=== PATIENT | female | born 1975 | race Caucasian/White ===

== ENCOUNTER → 2017-03-12 | Outpatient (REF) | payer BC | LOC: M LAB REF 09:50 | DX: J02.9 Acute pharyngitis, unspecified (principal) | CPT/HCPCS: 87077 ==

== ENCOUNTER 2017-03-31 05:42 | Day surgery (SDC) | payer BC ==
[2017-03-31] MEDS: ACETAMINOPHEN 650 MG SUPP PR (06:00)
[2017-03-31 06:34] LABS: HEMOGLOBIN 14.2 g/dl (12.0-16.0); MEAN CORPUSCULAR HEMOGLOBIN 29.6 pg (27.0-33.0); MEAN CORPUSCULAR HGB CONC 32.3 g/dl (32.0-36.5); MEAN CORPUSCULAR VOLUME 91.9 fl (80.0-96.0); PLATELET COUNT, AUTOMATED 383 10^3/uL (150-450); RED BLOOD COUNT 4.79 10^6/uL (4.00-5.40); RED CELL DISTRIBUTION WIDTH 13.2 % (11.5-14.5); WHITE BLOOD COUNT 6.8 10^3/uL (4.0-10.0)
[2017-03-31] MEDS: LR 1,000 ML IV ×5 (06:39→19:30)
[2017-03-31 06:47] LABS: CONTROL LINE HCG INT CTR LINE PRESENT; HCG, SERUM QUALITATIVE NEGATIVE (NEGATIVE)
[2017-03-31 06:53] LABS: ANION GAP 8 MEQ/L (8-16); BLOOD UREA NITROGEN 7 MG/DL (7-18); CALCIUM LEVEL 9.2 MG/DL (8.5-10.1); CARBON DIOXIDE LEVEL 27 MEQ/L (21-32); CHLORIDE LEVEL 106 MEQ/L (98-107); CREATININE FOR GFR 0.81 MG/DL (0.55-1.02); GLOMERULAR FILTRATION RATE > 60.0 (>58); GLUCOSE, FASTING 92 MG/DL (70-100); POTASSIUM SERUM 4.1 MEQ/L (3.5-5.1); SODIUM LEVEL 141 MEQ/L (136-145)
[2017-03-31] MEDS: ACETAMINOPHEN 650 MG SUPP As Ordered (07:55)
[2017-03-31] MEDS ORDERED: MIDAZOLAM INJ 2 MG/2 ML VIAL (J2250) As Ordered (07:58)
[2017-03-31] MEDS ORDERED: fentaNYL 250 MCG/5 ML INJECTION (J3010) As Ordered (07:58)
[2017-03-31] MEDS ORDERED: ROCURONIUM BROMIDE 50 MG/5 ML VIAL As Ordered ×2 (07:59)
[2017-03-31] MEDS ORDERED: LIDOCAINE 2% INJ 100 MG/5 ML SYRINGE As Ordered (08:01)
[2017-03-31] MEDS ORDERED: METOCLOPRAMIDE INJ 10MG/2ML VIAL (J2765) As Ordered (08:02)
[2017-03-31] MEDS ORDERED: KETOROLAC 60 MG/2 ML VIAL (J1885) As Ordered (08:02)
[2017-03-31] MEDS ORDERED: PROPOFOL 200 MG/20 ML VIAL As Ordered (08:02)
[2017-03-31] MEDS ORDERED: ONDANSETRON 4MG/2ML VIAL (J2405) As Ordered (08:02)
[2017-03-31] MEDS ORDERED: dexameTHASONE 4 MG/ML 1ML VIAL (J1100) As Ordered ×2 (08:02)
[2017-03-31] MEDS ORDERED: NEOSTIGMINE 10 MG/10 ML VIAL (J2710) As Ordered (08:03)
[2017-03-31] MEDS ORDERED: GLYCOPYRROLATE INJ 0.2 MG/ML 2 ML VIAL As Ordered ×2 (08:03)
[2017-03-31] MEDS: FLUORESCEIN 10% (100MG/ML) 5 ML VIAL As Ordered (09:07)
[2017-03-31] MEDS: BUPIVACAINE HCL 0.25% 30 ML VIAL As Ordered (09:35)
[2017-03-31] MEDS: LIDOCAINE W/EPINEPHRINE 1% 20ML VIAL As Ordered (09:35)
[2017-03-31] MEDS ORDERED: MEPERIDINE INJ 25 MG/ML VIAL (J2175) As Ordered (09:58)
[2017-03-31] MEDS: MEPERIDINE INJ 25 MG/ML VIAL (J2175) IV ×2 (10:00→10:05)
[2017-03-31] MEDS ORDERED: PERCOCET 5MG/325MG TAB PO (10:15)
[2017-03-31] MEDS ORDERED: ONDANSETRON 4MG/2ML VIAL (J2405) IV (10:15)
[2017-03-31] MEDS ORDERED: HYDROmorphone HCL 1 MG/ML SYRINGE (J1170) IV (10:15)
[2017-03-31] MEDS: fentaNYL 100 MCG/2 ML INJECTION (J3010) IV ×3 (10:20→10:30)
[2017-03-31] MEDS: SIMETHICONE 80 MG CHEW TAB PO ×2 (12:43→18:29)
[2017-03-31] MEDS: IBUPROFEN 800 MG TAB PO ×2 (12:44→18:29)
[2017-03-31] MEDS: PERCOCET 5MG/325MG TAB PO ×3 (12:44→21:27)
[2017-03-31] MEDS ORDERED: SLF 3 ML SYR IV (18:45)
[2017-04-01] MEDS: SLF 3 ML SYR IV ×2 (00:28→06:06)
[2017-04-01] MEDS: IBUPROFEN 800 MG TAB PO ×2 (00:28→06:06)
[2017-04-01] MEDS: SIMETHICONE 80 MG CHEW TAB PO ×2 (00:28→06:05)
[2017-04-01] MEDS: PERCOCET 5MG/325MG TAB PO ×3 (01:44→10:48)
== END 2017-04-01 11:03 | disposition home or self-care (01) ==
LOC: M SDC 05:42 → M PED 10:55
DX: D25.1 Intramural leiomyoma of uterus (principal); D25.0 Submucous leiomyoma of uterus; D25.2 Subserosal leiomyoma of uterus; R10.2 Pelvic and perineal pain; N80.9 Endometriosis, unspecified; K56.50 Intestinal adhesions [bands], unspecified as to partial versus complete obstruction; I49.3 Ventricular premature depolarization; K21.9 Gastro-esophageal reflux disease without esophagitis; Z72.0 Tobacco use; Z88.2 Allergy status to sulfonamides; Z79.899 Other long term (current) drug therapy
CPT/HCPCS: 58552

== ENCOUNTER → 2017-12-15 | Outpatient (CLI) | payer BC ==
[2017-12-15 08:20] LABS: BASO % 0.6 % (0.0-1.0); EOS # 0.2 10^3/uL (0.0-0.50); HEMOGLOBIN 14.6 g/dl (12.0-15.5); IMMATURE GRANULOCYTE % 0.4 % (0-3.0); LYMPH # 2.9 10^3/uL (1.5-4.5); LYMPH % 43.3 % (24.0-44.0); MEAN CORPUSCULAR HEMOGLOBIN 30.8 pg (27.0-33.0); MEAN CORPUSCULAR HGB CONC 32.4 g/dl (32.0-36.5); MEAN CORPUSCULAR VOLUME 94.9 fl (80.0-96.0); MONO # 0.6 10^3/uL (0.0-0.8); MONO % 8.9 % (0.0-5.0); NEUTROPHILS # 2.9 10^3/uL (1.8-7.7); NEUTROPHILS % 43.8 % (36.0-66.0); PLATELET COUNT, AUTOMATED 316 10^3/uL (150-450); RED BLOOD COUNT 4.74 10^6/uL (4.00-5.40); RED CELL DISTRIBUTION WIDTH 12.4 % (11.5-14.5); WHITE BLOOD COUNT 6.7 10^3/uL (4.0-10.0)
[2017-12-15 08:55] LABS: ALBUMIN 4.3 GM/DL (3.2-5.2); ALKALINE PHOSPHATASE 77 U/L (45-117); ALT/SGPT 33 U/L (12-78); ANION GAP 6 MEQ/L (8-16); AST/SGOT 20 U/L (7-37); BILIRUBIN,TOTAL 0.6 MG/DL (0.2-1.0); BLOOD UREA NITROGEN 13 MG/DL (7-18); CALCIUM LEVEL 9.5 MG/DL (8.5-10.1); CARBON DIOXIDE LEVEL 26 MEQ/L (21-32); CHLORIDE LEVEL 109 MEQ/L (98-107); CHOLESTEROL LEVEL 162 MG/DL (<200); CHOLESTEROL RISK RATIO 3.521 (<5); CREATININE FOR GFR 0.85 MG/DL (0.55-1.30); GLOMERULAR FILTRATION RATE > 60.0 (>58); GLUCOSE, FASTING 90 MG/DL (70-100); HDL CHOLESTEROL 46 MG/DL (>40); LDL CHOLESTEROL 103 MG/DL (<100); NON-HDL-C 116 MG/DL; POTASSIUM SERUM 4.5 MEQ/L (3.5-5.1); SODIUM LEVEL 141 MEQ/L (136-145); TOTAL PROTEIN 7.6 GM/DL (6.4-8.2); TRIGLYCERIDES LEVEL 67 MG/DL (<150)
== END ==
LOC: M LAB 06:59
DX: Z13.0 Encounter for screening for diseases of the blood and blood-forming organs and certain disorders involving the immune mechanism (principal); Z13.220 Encounter for screening for lipoid disorders; Z13.29 Encounter for screening for other suspected endocrine disorder
CPT/HCPCS: 77067

== ENCOUNTER 2018-03-17 19:44 | Emergency (ER) | payer BC ==
[~2018-03-17] VITALS: Ht 167.6 cm; Wt 76.4 kg
[~2018-03-17 19:44] MED LIST: DEPO150I IM; PERC2.5T PO; PERC5TAB12 PO; TOBROPO OS
[2018-03-17] MEDS ORDERED: ONDANSETRON 4MG/2ML VIAL (J2405) IV ONE (20:15)
[2018-03-17] MEDS ORDERED: NS 500 ML IV ONE (20:15)
[2018-03-17] MEDS ORDERED: KETOROLAC 30 MG/ML VIAL (J1885) IV ONE (20:15)
[2018-03-17 20:27] LABS: URINE PREG TEST NEGATIVE (NEGATIVE)
[2018-03-17 20:31] LABS: BASO # 0.1 10^3/uL (0.0-0.2); BASO % 0.4 % (0.0-1.0); EOS # 0.2 10^3/uL (0.0-0.50); EOS % 1.7 % (0.0-3.0); HEMATOCRIT 43.2 % (36.0-47.0); HEMOGLOBIN 14.5 g/dl (12.0-15.5); MEAN CORPUSCULAR HEMOGLOBIN 31.4 pg (27.0-33.0); MEAN CORPUSCULAR HGB CONC 33.6 g/dl (32.0-36.5); MEAN CORPUSCULAR VOLUME 93.5 fl (80.0-96.0); MONO # 0.7 10^3/uL (0.0-0.8); MONO % 6.1 % (0.0-5.0); NEUTROPHILS # 7.8 10^3/uL (1.8-7.7); NEUTROPHILS % 66.2 % (36.0-66.0); PLATELET COUNT, AUTOMATED 325 10^3/uL (150-450); RED BLOOD COUNT 4.62 10^6/uL (4.00-5.40); WHITE BLOOD COUNT 11.8 10^3/uL (4.0-10.0)
[2018-03-17 20:39] LABS: BLOOD UREA NITROGEN 11 MG/DL (7-18); C REACTIVE PROTEIN QUANTITATIV < 0.30 MG/DL (0.00-0.30); CALCIUM LEVEL 8.7 MG/DL (8.5-10.1); CARBON DIOXIDE LEVEL 25 MEQ/L (21-32); CHLORIDE LEVEL 104 MEQ/L (98-107); CREATININE FOR GFR 0.79 MG/DL (0.55-1.30); GLOMERULAR FILTRATION RATE > 60.0 (>58); GLUCOSE, FASTING 93 MG/DL (70-100); POTASSIUM SERUM 4.2 MEQ/L (3.5-5.1); SODIUM LEVEL 136 MEQ/L (136-145)
--- NOTE | 2018-03-17 21:42 | REPVR ---
EXAM: CT Abdomen and Pelvis Without Contrast EXAM DATE/TIME: 03/17/2018 8:16 PM CLINICAL HISTORY: 43 years old, female; Pain; Abdominal pain; Localized; Left lower quadrant (llq); Additional info: Sudden onset llq pain, ? kidney stone TECHNIQUE: Axial computed tomography images of the abdomen and pelvis without contrast. All CT scans at this facility use at least one of these dose optimization techniques: automated exposure control; mA and/or kV adjustment per patient size (includes targeted exams where dose is matched to clinical indication); or iterative reconstruction. Coronal and sagittal reformatted images were created and reviewed. COMPARISON: US PELVIC NON-OB COMPLETE 12/12/2012 7:02 AM FINDINGS: Lower thorax: No acute findings. ABDOMEN: Liver: Normal. No mass. Gallbladder and bile ducts: Normal. No calcified stones. No ductal dilation. Pancreas: Normal. No ductal dilation. Spleen: Normal. No splenomegaly. Adrenals: Normal. No mass. Kidneys and ureters: Normal. No hydronephrosis. Stomach and bowel: Normal. No obstruction. No mucosal thickening. Appendix: There are no changes of appendicitis. A normal appendix is not seen. PELVIS: Bladder: Unremarkable as visualized. Reproductive: Left ovarian cyst 2.5 cm. There is a slightly higher density nodule at the posterolateral aspect. Cyst hemorrhage is not excluded. Status post hysterectomy. ABDOMEN and PELVIS: Intraperitoneal space: Normal. No free air. No significant fluid collection. Bones/joints: No acute fracture. No dislocation. Soft tissues: The minimal fat filled umbilical hernia Vasculature: Normal. No abdominal aortic aneurysm. Lymph nodes: Normal. No enlarged lymph nodes. IMPRESSION: 1. Left ovarian cyst measuring 2.5 cm. There is a small focus of slightly higher attenuation at the lateral and left posterolateral aspect of the cyst. Cystic hemorrhage is not excluded. 2. Status post hysterectomy. Electronically signed by: Adonay Desai On 03/17/2018 21:42:02 PM
[2018-03-17] MEDS ORDERED: PERC5TAB12 PO (21:55)
[2018-03-17] MEDS ORDERED: ZOFR4TAB16 PO (21:55)
[2018-03-17] MEDS ORDERED: KETO10TAB PO (21:55)
[2018-03-17 21:56] VITALS: BP 112/76
[2018-03-17] MEDS ORDERED: OXYCODONE/APAP 5MG/325MG(BULK FOR ED) 1 TABLET PO ONE (22:00)
[2018-03-17] MEDS ORDERED: ONDANSETRON 4 MG ORAL DISINTEGRATING TAB (Q0162 PER 1MG) PO ONE (22:00)
== END 2018-03-17 22:05 | disposition home or self-care (01) ==
LOC: M ED 19:44
DX: N83.292 Other ovarian cyst, left side (principal); R10.32 Left lower quadrant pain; Z87.442 Personal history of urinary calculi; Z88.2 Allergy status to sulfonamides
CPT/HCPCS: 74176; 80048; 81001; 84703; 85025; 86140; 96374; 96375; 99284; J1885; J2405

== ENCOUNTER → 2018-04-01 | Outpatient (REF) | payer BC ==
[~2018-04-01] MED LIST changes: +KETO10TAB PO; +ZOFR4TAB16 PO
== END ==
LOC: M LAB REF 10:50
PROVIDERS: ATTEND Family Medicine
DX: D48.5 Neoplasm of uncertain behavior of skin (principal)

== ENCOUNTER 2019-01-21 00:54 | Emergency (ER) | payer BC ==
[~2019-01-21] VITALS: Ht 167.6 cm; Wt 79.5 kg
[2019-01-21] MEDS ORDERED: MORPHINE 4 MG/ML 1ML VIAL/SYRINGE (J2270) As Ordered ONE (01:02)
[2019-01-21] MEDS: MORPHINE 4 MG/ML 1ML VIAL/SYRINGE (J2270) IV PRN ×2 (01:11→02:14)
[2019-01-21] MEDS ORDERED: ONDANSETRON 4MG/2ML VIAL (J2405) IV ONE (01:15)
[2019-01-21] MEDS ORDERED: LORazepam 2 MG/ML VIAL (J2060) IV STA (01:17)
[2019-01-21 01:19] LABS: BASO % 0.5 % (0.0-1.0); EOS # 0.1 10^3/uL (0.0-0.5); EOS % 0.8 % (0.0-3.0); HEMATOCRIT 43.6 % (36.0-47.0); HEMOGLOBIN 14.1 g/dl (12.0-15.5); LYMPH # 3.9 10^3/uL (1.5-5.0); LYMPH % 51.7 % (24.0-44.0); MEAN CORPUSCULAR HEMOGLOBIN 31.3 pg (27.0-33.0); MEAN CORPUSCULAR HGB CONC 32.3 g/dl (32.0-36.5); MEAN CORPUSCULAR VOLUME 96.9 fl (80.0-96.0); MONO # 0.5 10^3/uL (0.0-0.8); NEUTROPHILS % 40.9 % (36.0-66.0); PLATELET COUNT, AUTOMATED 332 10^3/uL (150-450); WHITE BLOOD COUNT 7.5 10^3/uL (4.0-10.0)
[2019-01-21 01:30] LABS: INR 1.03; PROTHROMBIN TIME 13.2 SECONDS (11.8-14.0)
[2019-01-21] MEDS ORDERED: AMPICILLIN SOD/SULBACTAM SOD 3 GM in D5W MINI-BAG PLUS 100 ML IV ONE (01:30)
[2019-01-21 01:31] LABS: PARTIAL THROMBOPLASTIN TIME 25.9 SECONDS (25.0-38.4)
[2019-01-21 01:53] LABS: BLOOD UREA NITROGEN 8 MG/DL (7-18); CALCIUM LEVEL 8.5 MG/DL (8.5-10.1); CARBON DIOXIDE LEVEL 24 MEQ/L (21-32); CHLORIDE LEVEL 110 MEQ/L (98-107); CREATININE FOR GFR 0.81 MG/DL (0.55-1.30); GLOMERULAR FILTRATION RATE > 60.0 (>58); GLUCOSE, FASTING 117 MG/DL (70-100); POTASSIUM SERUM 4.2 MEQ/L (3.5-5.1); SODIUM LEVEL 142 MEQ/L (136-145)
[2019-01-21 02:14] VITALS: BP 120/85
== END 2019-01-21 02:16 | disposition short-term general hospital (02) ==
LOC: M ED 00:54
DX: S01.551A Open bite of lip, initial encounter (principal); W54.0XXA Bitten by dog, initial encounter; Y92.410 Unspecified street and highway as the place of occurrence of the external cause; Z88.1 Allergy status to other antibiotic agents; Z88.2 Allergy status to sulfonamides
CPT/HCPCS: 80048; 85025; 85610; 85730; 96365; 96375; 96376; 99284; G0480; J2060; J2270; J2405

== ENCOUNTER 2019-01-29 08:50 | Emergency (ER) | payer BC ==
[~2019-01-29] VITALS: Ht 167.6 cm; Wt 77.3 kg
[2019-01-29 08:53] VITALS: BP 132/88
[2019-01-29] MEDS ORDERED: AMOX875T2 (08:59)
[2019-01-29] MEDS ORDERED: HYDR-3713 (08:59)
[2019-01-29] MEDS ORDERED: BACI500O8 (08:59)
[2019-01-29] MEDS ORDERED: PERCOCET 5MG/325MG TAB PO ONE (09:15)
[2019-01-29] MEDS ORDERED: PERC5TAB12 PO (09:29)
== END 2019-01-29 09:50 | disposition home or self-care (01) ==
LOC: M ED 08:50
DX: S00.501A Unspecified superficial injury of lip, initial encounter (principal); W54.0XXA Bitten by dog, initial encounter; Y92.9 Unspecified place or not applicable; Z88.2 Allergy status to sulfonamides; Z79.899 Other long term (current) drug therapy

== ENCOUNTER 2019-02-04 20:31 | Emergency (ER) | payer BC ==
[~2019-02-04 20:31] MED LIST changes: +AMOX875T2; +BACI500O8; +HYDR-3713
[2019-02-04] MEDS ORDERED: LORazepam 2 MG/ML VIAL (J2060) IV STA (20:37)
[2019-02-04] MEDS ORDERED: LORazepam 2 MG/ML VIAL (J2060) As Ordered ONE (20:40)
[2019-02-04] MEDS ORDERED: NS 1,000 ML IV ONE (20:45)
[2019-02-04] MEDS ORDERED: METOCLOPRAMIDE INJ 10MG/2ML VIAL (J2765) IV ONE (20:45)
[2019-02-04 20:55] LABS: BASO % 0.5 % (0.0-1.0); EOS # 0.2 10^3/uL (0.0-0.5); LYMPH # 3.2 10^3/uL (1.5-5.0); LYMPH % 40.7 % (24.0-44.0); MEAN CORPUSCULAR HGB CONC 32.5 g/dl (32.0-36.5); MEAN CORPUSCULAR VOLUME 95.2 fl (80.0-96.0); MONO # 0.6 10^3/uL (0.0-0.8); MONO % 7.5 % (0.0-5.0); NEUTROPHILS # 3.9 10^3/uL (1.5-8.5); PLATELET COUNT, AUTOMATED 270 10^3/uL (150-450); WHITE BLOOD COUNT 7.9 10^3/uL (4.0-10.0)
[2019-02-04 21:24] LABS: ALBUMIN 3.7 GM/DL (3.2-5.2); ALT/SGPT 24 U/L (12-78); BILIRUBIN,DIRECT 0.2 MG/DL (0.0-0.2); BILIRUBIN,TOTAL 0.6 MG/DL (0.2-1.0); BLOOD UREA NITROGEN 8 MG/DL (7-18); CALCIUM LEVEL 9.3 MG/DL (8.5-10.1); CARBON DIOXIDE LEVEL 24 MEQ/L (21-32); CHLORIDE LEVEL 105 MEQ/L (98-107); GLOMERULAR FILTRATION RATE > 60.0 (>58); GLUCOSE, FASTING 107 MG/DL (70-100); LIPASE 66 U/L (73-393); POTASSIUM SERUM 3.7 MEQ/L (3.5-5.1); SODIUM LEVEL 139 MEQ/L (136-145); TOTAL PROTEIN 6.8 GM/DL (6.4-8.2)
[2019-02-04] MEDS ORDERED: SCOP1PAT2 TOP (22:01)
[2019-02-04 22:46] VITALS: BP 92/94
== END 2019-02-04 22:49 | disposition home or self-care (01) ==
LOC: M ED 20:31
DX: R11.2 Nausea with vomiting, unspecified (principal); T50.995A Adverse effect of other drugs, medicaments and biological substances, initial encounter; X58.XXXA Exposure to other specified factors, initial encounter; Y92.89 Other specified places as the place of occurrence of the external cause; Z88.1 Allergy status to other antibiotic agents; Z88.2 Allergy status to sulfonamides
CPT/HCPCS: 80048; 80076; 83690; 85025; 96361; 96374; 96375; 99284; J2060; J2765

== ENCOUNTER → 2019-02-15 | Outpatient (CLI) | payer BC ==
[~2019-02-15] MED LIST changes: +SCOP1PAT2 TOP
--- NOTE | 2019-02-15 15:38 | REP ---
BILATERAL MAMMOGRAM WITH 3D TOMOSYNTHESIS AND RIGHT BREAST ULTRASOUND: No family history of breast cancer. Taryn Campos lifetime risk of breast cancer 14.5%. Comparison mammogram 12/15/2017. The breast parenchyma is extremely dense bilaterally. This limits the sensitivity of the mammogram. In the right breast, only seen in the CC projection, there appear to be two adjacent smoothly marginated nodules in the posterior third, with the posterior margins not well visualized and other margins partially obscured by adjacent dense fibroglandular tissue. One of the nodular densities is in the region of 6-o'clock measuring about 1.8 cm in diameter and the other is at about 7-o'clock measuring 2.4 cm in diameter. Otherwise no definite mass or clustered microcalcifications are seen bilaterally. A few small axillary lymph nodes are seen. Real-time sonographic evaluation of the right breast performed. Posteriorly at 7-o'clock there is a simple cyst identified which measures 3.6 x 3.0 x 1.4 cm. At the 6-o'clock position, there is an oval cyst measuring 2.4 x 0.8 x 2.8 cm. Closer to the nipple, there is a subcentimeter cyst. IMPRESSION: ACR 2 benign. Extremely dense breast parenchyma limits the sensitivity of the mammogram. In the right breast on the CC views, there are two adjacent smoothly marginated nodules posteriorly at 6-o'clock and 7-o'clock corresponding to cysts by ultrasound. These are benign. Recommend followup mammogram in one year. Also given the extremely dense breast parenchyma and limited evaluation I would strongly consider MRI of the breasts for more sensitive evaluation for underlying neoplasm. BIRADS 2: BI-RADS/ACR category 2 mammogram. Benign Findings. This mammogram was interpreted with the aid of an FDA-approved computer-aided detection system. The patient states she/he has not had a clinical breast exam in over a year. The patient letter being requested is M1. Unreviewed
== END ==
LOC: M RAD 13:13
PROVIDERS: ATTEND Family Medicine
DX: Z12.31 Encounter for screening mammogram for malignant neoplasm of breast (principal)

== ENCOUNTER → 2020-02-20 | Outpatient (CLI) | payer BC ==
--- NOTE | 2020-02-20 13:06 | REPMRS ---
Patient History The patient states she has not had a clinical breast exam in over a year. Family history of prostate cancer at age 67 in maternal uncle. Took hormonal contraceptives for 19 years. Digital Woman Screen Mammo: February 20, 2020 - Exam #: [id number] Bilateral CC and MLO view(s) were taken. Technologist: Jessica Manzanares, Technologist Prior study comparison: February 15, 2019, bilateral digital mammo screening bilat, performed at [facility]. December 15, 2017, bilateral digital mammo screening bilat, performed at [facility]. FINDINGS: The breast tissue is extremely dense which could obscure a lesion on mammography. The Volpara volumetric breast density category is: D. There is an extremely dense symmetrical pattern of residual fibroglandular tissue. There has been no change in the appearance of the mammogram from the previous studies. There is no interval development of dominant mass, archetectural distortion, or grouped microcalcifications suggestive of malignancy. 3-D tomosynthesis shows no additional findings. Assessment: BI-RADS/ACR category 1 mammogram. Negative Mammogram. Recommendation Routine screening mammogram of both breasts in 1 year (for women over age 40). This patient's [facility] Lifetime Breast Cancer RIsk is estimated at 14.4 %. This mammogram was interpreted with the aid of an FDA-approved computer-aided dectection system. Electronically Signed By: Aashish Lewis MD 02/20/20 1233
== END ==
LOC: M WHC 12:40
PROVIDERS: ATTEND Family Medicine
DX: Z12.31 Encounter for screening mammogram for malignant neoplasm of breast (principal)

== ENCOUNTER → 2020-10-03 | Outpatient (CLI) | payer BC ==
--- NOTE | 2020-10-03 08:11 | REP ---
INDICATION: PAIN IN LEFT KNEE. COMPARISON: Comparison left knee radiographs are from March 05, 2012.. TECHNIQUE: Five views of the left knee are provided. 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 No fracture or subluxation is seen. No opaque foreign body noted. There is non articular spurring at the superior pole of the patella on the lateral film at the quadriceps tendon insertion consistent with tendinitis. There is also articular spurring at the superior pole of patella on the lateral radiograph consistent with early osteoarthritis. IMPRESSION: Patellar spurring. Otherwise negative.. <Electronically signed by Aashish Lewis > 10/03/20 0829
== END ==
LOC: M RAD 07:21
PROVIDERS: ATTEND Family Medicine
DX: M25.762 Osteophyte, left knee (principal)

== ENCOUNTER → 2020-10-22 | Outpatient (CLI) | payer BC ==
--- NOTE | 2020-10-22 10:53 | REP ---
INDICATION: OTH MENISCUS DERANGEMENTS. COMPARISON: 03/11/2012 TECHNIQUE: Sagittal spin-echo proton density, T2 STIR and T2 FLASH. Coronal spin-echo proton density and fat suppressed proton density. Axial fat suppressed proton density. FINDINGS: The anterior and posterior horns of the medial meniscus are within normal limits. The anterior and posterior horns of the lateral meniscus are within normal limits. Anterior and posterior cruciate ligaments are intact. The quadriceps and patellar tendons are intact. The medial and lateral collateral ligaments are intact. The medial and lateral patellar retinacula are intact. There is thinning and irregularity of the patellar articular cartilage. This is seen with a subtle areas of blistering and fissuring particularly affecting the superior pole and in conjunction with subchondral T2 hyper signal. There is mild thinning of the remainder of the articular cartilages. There is a small nonspecific collection of fluid seen in the posterior compartment medially. This is unchanged compared to the prior exam. There is no thomas joint effusion. A subtle collection of fluid is seen in the tibiofibular articulation. There is an unchanged incidental unicameral cyst in the distal femoral diaphysis. IMPRESSION: 1. 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 2. Nonspecific fluid collections as described above. 3. There is no evidence of acute internal derangement. Other findings as described above. <Electronically signed by Richmond Ozuna > 10/22/20 [id number]
== END ==
LOC: M RAD 09:24
PROVIDERS: ATTEND Orthopaedic Surgery Sports Medicine
DX: M23.301 Other meniscus derangements, unspecified lateral meniscus, left knee (principal)

== ENCOUNTER 2020-11-04 12:58 | Outpatient (RCR) | payer BC | END 2020-11-05 | LOC: M PT 12:58 | PROVIDERS: ATTEND Orthopaedic Surgery Sports Medicine | DX: M23.301 Other meniscus derangements, unspecified lateral meniscus, left knee (principal); M76.52 Patellar tendinitis, left knee ==

== ENCOUNTER → 2021-02-25 | Outpatient (CLI) | payer BC ==
[~2021-02-25] MED LIST changes: -SCOP1PAT2 TOP; +TRAN1DIS4 TOP
--- NOTE | 2021-02-25 10:59 | REPMRS ---
Patient History The patient states she has not had a clinical breast exam in over a year. Family history of prostate cancer at age 67 in maternal uncle. Took hormonal contraceptives for 19 years. Tomosynthesis is performed. Volpara breast density is c. Tyrer-Cuzick lifetime risk of breast cancer 14.0%. Patient states no breast complaints today. Patient has signed MRS History Sheet. Digital Woman Screen Mammo: February 25, 2021 - Exam #: [id number] Bilateral CC and MLO view(s) were taken. Technologist: Maggie Bakerologist Prior study comparison: February 20, 2020, bilateral digital woman screen mammo performed at [facility]. February 15, 2019, bilateral digital mammo screening bilat, performed at [facility]. FINDINGS: The breast tissue is heterogeneously dense. This may lower the sensitivity of mammography. There is a fairly symmetric fibroglandular pattern in both breasts. There has been no interval development of masses, areas of architectural distortion or clusters of microcalcifications typical of malignancy.Right breast cysts are again noted. Assessment: BI-RADS/ACR category 2 mammogram. Benign Findings. Recommendation Routine screening mammogram of both breasts in 1 year (for women over age 40). This mammogram was interpreted with the aid of an FDA-approved computer-aided dectection system. Electronically Signed By: Aniceto Spence MD 02/25/21 1058
== END ==
LOC: M WHC 10:05
PROVIDERS: ATTEND Family Medicine
DX: Z12.31 Encounter for screening mammogram for malignant neoplasm of breast (principal)

== ENCOUNTER → 2021-02-27 | Outpatient (REF) | LOC: M EMP 07:57 | PROVIDERS: ATTEND Family Medicine | DX: Z20.822 Contact with and (suspected) exposure to COVID-19 (principal); Z11.52 Encounter for screening for COVID-19 ==

== ENCOUNTER 2021-02-28 08:06 | Outpatient (CLI) | payer BC ==
[~2021-02-28] VITALS: Ht 167.6 cm; Wt 81.6 kg
[~2021-02-28 08:06] MED LIST changes: +ALBUTEROL 90 MCG/ACT 8GM HFA INHALER INH PRN; +ALBUTEROL SULFATE 2.5 MG/0.5 ML INH NEB SOLN INH PRN; +CASIRIVIMAB/IMDEVIMAB 1,200 MG in NS 250 ML IV ONE; +EPINEPHrine INJ 1 MG/ML 1ML AMP IM PRN; +NS 1,000 ML IV SCH; +diphenhydrAMINE 50MG/ML VIAL (J1200) IV PRN; +methylPREDNISolone 125MG 2ML VIAL IV PRN
[2021-02-28 08:29] VITALS: BP 116/78
[2021-02-28 08:59] VITALS: BP 109/69
[2021-02-28 09:29] VITALS: BP 105/66
[2021-02-28 10:29] VITALS: BP 112/65
== END 2021-02-28 10:29 | disposition home or self-care (01) ==
LOC: M OPCLI4PR 08:06
PROVIDERS: ATTEND Family Medicine
DX: U07.1 COVID-19 (principal); Z88.2 Allergy status to sulfonamides

== ENCOUNTER → 2021-10-24 | Outpatient (REF) ==
[~2021-10-24] MED LIST changes: -ALBUTEROL 90 MCG/ACT 8GM HFA INHALER INH PRN; -ALBUTEROL SULFATE 2.5 MG/0.5 ML INH NEB SOLN INH PRN; -CASIRIVIMAB/IMDEVIMAB 1,200 MG in NS 250 ML IV ONE; -EPINEPHrine INJ 1 MG/ML 1ML AMP IM PRN; -NS 1,000 ML IV SCH; -diphenhydrAMINE 50MG/ML VIAL (J1200) IV PRN; -methylPREDNISolone 125MG 2ML VIAL IV PRN
== END ==
LOC: M EMP 12:44
PROVIDERS: ATTEND Family Medicine
DX: Z11.52 Encounter for screening for COVID-19 (principal)

== ENCOUNTER → 2021-11-06 | Outpatient (CLI) | payer BC ==
[2021-11-06 10:23] LABS: BASO % 0.6 % (0.0-1.0); EOS # 0.3 10^3/uL (0.0-0.5); EOS % 3.7 % (0.0-3.0); HEMATOCRIT 43.8 % (36.0-47.0); LYMPH # 2.4 10^3/uL (1.5-5.0); LYMPH % 35.8 % (24.0-44.0); MEAN CORPUSCULAR HEMOGLOBIN 30.4 pg (27.0-33.0); MEAN CORPUSCULAR VOLUME 95.2 fl (80.0-96.0); MONO # 0.6 10^3/uL (0.0-0.8); MONO % 8.2 % (2.0-8.0); NEUTROPHILS # 3.5 10^3/uL (1.5-8.5); NEUTROPHILS % 51.3 % (36.0-66.0); PLATELET COUNT, AUTOMATED 316 10^3/uL (150-450); WHITE BLOOD COUNT 6.7 10^3/uL (4.0-10.0)
[2021-11-06 10:47] LABS: HEMOGLOBIN A1c 5.3 %
[2021-11-06 11:42] LABS: ALBUMIN 3.6 GM/DL (3.2-5.2); ALT/SGPT 26 U/L (12-78); BILIRUBIN,TOTAL 0.5 MG/DL (0.2-1.0); BLOOD UREA NITROGEN 17 MG/DL (7-18); CALCIUM LEVEL 8.6 MG/DL (8.5-10.1); CARBON DIOXIDE LEVEL 23 MEQ/L (21-32); CHLORIDE LEVEL 109 MEQ/L (98-107); CHOLESTEROL LEVEL 171 MG/DL (<200); CHOLESTEROL RISK RATIO 3.638 (<5); CREATININE FOR GFR 0.78 MG/DL (0.55-1.30); FREE T4 0.75 NG/DL (0.76-1.46); GLOMERULAR FILTRATION RATE > 60.0 (>58); GLUCOSE, FASTING 89 MG/DL (70-100); HDL CHOLESTEROL 47 MG/DL (>40); LDL CHOLESTEROL 107 MG/DL (<100); NON-HDL-C 124 MG/DL; POTASSIUM SERUM 4.5 MEQ/L (3.5-5.1); SODIUM LEVEL 139 MEQ/L (136-145); THYROID STIMULATING HORMONE 0.749 uIU/ML (0.358-3.740); TOTAL PROTEIN 7.1 GM/DL (6.4-8.2); TRIGLYCERIDES LEVEL 87 MG/DL (<150)
[2021-11-06 12:11] LABS: TOTAL 25(OH) VITAMIN D 24.2 NG/ML (30.0-100.0)
[2021-11-06 12:12] LABS: FOLLICLE STIMULATING HORMONE 8.1 mIU/mL; LUTEINIZING HORMONE 2.8 mIU/mL
== END ==
LOC: M WUC 07:46
PROVIDERS: ATTEND Physician Assistant
DX: Z13.29 Encounter for screening for other suspected endocrine disorder (principal); Z13.220 Encounter for screening for lipoid disorders

== ENCOUNTER → 2021-12-01 | Outpatient (CLI) | payer BC | LOC: M WHC 13:56 | PROVIDERS: ATTEND Physician Assistant | DX: N63.10 Unspecified lump in the right breast, unspecified quadrant (principal) | CPT/HCPCS: 76642; 77066; G0279 ==

== ENCOUNTER → 2022-05-19 | Outpatient (REF) | payer BC | LOC: M SFHCDERM 17:16 | PROVIDERS: ATTEND Nurse Practitioner Family | DX: T87.34 Neuroma of amputation stump, left lower extremity (principal) ==

== ENCOUNTER → 2022-06-30 | Outpatient (CLI) | payer BC ==
[2022-06-30 10:31] LABS: C REACTIVE PROTEIN QUANTITATIV < 0.40 MG/DL (<1.0)
[2022-06-30 10:33] LABS: RHEUMATOID FACTOR QUANT 4.5 IU/ML (<14)
[2022-06-30 10:36] LABS: TOTAL 25(OH) VITAMIN D 48.5 NG/ML (20.0-100.0)
== END ==
LOC: M WUC 07:45
PROVIDERS: ATTEND Family Medicine
DX: M54.2 Cervicalgia (principal); M25.552 Pain in left hip; M25.551 Pain in right hip; E55.9 Vitamin D deficiency, unspecified

== ENCOUNTER → 2023-01-04 | Outpatient (CLI) | payer BC | LOC: M WHC 11:43 | PROVIDERS: ATTEND Obstetrics & Gynecology | DX: Z12.31 Encounter for screening mammogram for malignant neoplasm of breast (principal) ==

== ENCOUNTER → 2023-01-26 | Outpatient (REF) | LOC: M EMP 11:04 | PROVIDERS: ATTEND Family Medicine | DX: Z11.52 Encounter for screening for COVID-19 (principal) ==

== ENCOUNTER → 2023-04-29 | Outpatient (CLI) | payer BC ==
[2023-04-29 12:13] LABS: BASO % 0.6 % (0.0-1.0); EOS # 0.3 10^3/uL (0.0-0.5); EOS % 3.9 % (0.0-3.0); HEMATOCRIT 41.3 % (36.0-47.0); HEMOGLOBIN 13.7 g/dl (12.0-15.5); LYMPH % 32.1 % (24.0-44.0); MEAN CORPUSCULAR HEMOGLOBIN 31.4 pg (27.0-33.0); MEAN CORPUSCULAR HGB CONC 33.2 g/dl (32.0-36.5); MEAN CORPUSCULAR VOLUME 94.7 fl (80.0-96.0); MONO # 0.6 10^3/uL (0.0-0.8); MONO % 8.8 % (2.0-8.0); NEUTROPHILS # 3.4 10^3/uL (1.5-8.5); NEUTROPHILS % 54.3 % (36.0-66.0); PLATELET COUNT, AUTOMATED 302 10^3/uL (150-450); RED BLOOD COUNT 4.36 10^6/uL (4.00-5.40); WHITE BLOOD COUNT 6.3 10^3/uL (4.0-10.0)
[2023-04-29 12:34] LABS: ALBUMIN 3.9 G/DL (3.2-5.2); ALKALINE PHOSPHATASE 60 U/L (46-116); ALT/SGPT 22 U/L (7.0-40); AST/SGOT 10 U/L (<34); BILIRUBIN,TOTAL 0.6 MG/DL (0.3-1.2); BLOOD UREA NITROGEN 12 MG/DL (9-23); CALCIUM LEVEL 8.9 MG/DL (8.5-10.1); CARBON DIOXIDE LEVEL 24 MMOL/L (20-31); CHLORIDE LEVEL 108 MMOL/L (98-107); CHOLESTEROL LEVEL 157 MG/DL (<200); CHOLESTEROL RISK RATIO 3.36 (<5); CREATININE FOR GFR 0.79 MG/DL (0.55-1.30); FOLLICLE STIMULATING HORMONE 5.4 mIU/ML; FREE T4 0.94 NG/DL (0.89-1.76); GLOMERULAR FILTRATION RATE > 60.0 (>58); GLUCOSE, FASTING 98 MG/DL (60-100); HDL CHOLESTEROL 46.6 MG/DL (>40); LDL CHOLESTEROL 96.6 MG/DL (<100); LUTEINIZING HORMONE 9.9 mIU/ML; NON-HDL-C 110.4 MG/DL; POTASSIUM SERUM 4.3 MMOL/L (3.5-5.1); SODIUM LEVEL 139 MMOL/L (136-145); THYROID STIMULATING HORMONE 0.948 uIU/ML (0.55-4.78); TOTAL PROTEIN 6.8 G/DL (5.7-8.2); TRIGLYCERIDES LEVEL 69 MG/DL (<150)
[2023-04-29 12:37] LABS: HEMOGLOBIN A1c 5.1 % (4.0-6.0)
== END ==
LOC: M WUC 07:36
PROVIDERS: ATTEND Nurse Practitioner Adult Health
DX: Z13.220 Encounter for screening for lipoid disorders (principal); Z13.29 Encounter for screening for other suspected endocrine disorder; E66.3 Overweight

== ENCOUNTER 2023-08-26 11:51 | Day surgery (SDC) | payer BC ==
[~2023-08-26] VITALS: Ht 167.6 cm; Wt 75.4 kg
[~2023-08-26 11:51] MED LIST changes: +AMBI5TAB PO; +DULO1CAP5 PO; +TIRZ5PEN3 SQ
[2023-08-26] MEDS: NS 1,000 ML IV ONE (12:26)
[2023-08-26 12:27] VITALS: TEMP 96.5
[2023-08-26] MEDS ORDERED: MIDAZOLAM INJ 2MG/2ML VIAL As Ordered ONE (12:43)
[2023-08-26] MEDS ORDERED: propofoL 200 MG/20 ML VIAL As Ordered ONE (13:04)
[2023-08-26] MEDS ORDERED: LIDOCAINE 2% 100MG/5ML SDV (FOR ANES.) As Ordered ONE (13:04)
[2023-08-26 13:43] VITALS: BP 126/65; O2SAT 99
== END 2023-08-26 13:48 | disposition home or self-care (01) ==
LOC: M OPP 11:51
PROVIDERS: ATTEND Surgery
DX: Z12.11 Encounter for screening for malignant neoplasm of colon (principal); Z79.899 Other long term (current) drug therapy; Z88.2 Allergy status to sulfonamides
CPT/HCPCS: 45378; J2250

== ENCOUNTER → 2023-09-02 | Outpatient (CLI) | payer BC ==
[2023-09-02 19:02] LABS: HEMATOCRIT 39.1 % (36.0-47.0); MEAN CORPUSCULAR HEMOGLOBIN 31.4 pg (27.0-33.0); MEAN CORPUSCULAR HGB CONC 33.2 g/dl (32.0-36.5); MEAN CORPUSCULAR VOLUME 94.4 fl (80.0-96.0); PLATELET COUNT, AUTOMATED 280 10^3/uL (150-450); RED BLOOD COUNT 4.14 10^6/uL (4.00-5.40); WHITE BLOOD COUNT 8.3 10^3/uL (4.0-10.0)
== END ==
LOC: M PLAIMG 12:42
PROVIDERS: ATTEND Surgery
DX: R10.32 Left lower quadrant pain (principal)

== ENCOUNTER → 2023-09-28 | Outpatient (CLI) | payer BC | LOC: M WHC 09:12 | PROVIDERS: ATTEND Family Medicine | DX: N64.4 Mastodynia (principal); N60.01 Solitary cyst of right breast | CPT/HCPCS: 76642; 77065; G0279 ==

== ENCOUNTER → 2023-11-15 | Outpatient (REF) | LOC: M EMP 12:39 | PROVIDERS: ATTEND Family Medicine | DX: Z02.89 Encounter for other administrative examinations (principal) ==

== ENCOUNTER → 2024-01-03 | Outpatient (REF) | LOC: M EMP 09:10 | PROVIDERS: ATTEND Family Medicine | DX: Z11.52 Encounter for screening for COVID-19 (principal) ==

== ENCOUNTER → 2024-03-13 | Outpatient (REF) | payer BC | LOC: M WUC 19:13 | PROVIDERS: ATTEND Student in an Organized Health Care Education/Training Program | DX: R30.0 Dysuria (principal) ==

== ENCOUNTER → 2024-04-20 | Outpatient (REF) | payer BC ==
[2024-04-20 11:14] LABS: BASO # 0.1 10^3/uL (0.0-0.2); BASO % 0.9 % (0.0-1.0); EOS # 0.1 10^3/uL (0.0-0.5); EOS % 2.5 % (0.0-3.0); HEMATOCRIT 40.3 % (36.0-47.0); HEMOGLOBIN 13.1 g/dl (12.0-15.5); LIPASE 36 U/L (12-53); LYMPH # 2.2 10^3/uL (1.5-5.0); LYMPH % 39.4 % (24.0-44.0); MEAN CORPUSCULAR HEMOGLOBIN 30.9 pg (27.0-33.0); MEAN CORPUSCULAR HGB CONC 32.5 g/dl (32.0-36.5); MONO # 0.6 10^3/uL (0.0-0.8); MONO % 10.5 % (2.0-8.0); NEUTROPHILS # 2.6 10^3/uL (1.5-8.5); NEUTROPHILS % 46.5 % (36.0-66.0); PLATELET COUNT, AUTOMATED 307 10^3/uL (150-450); RED BLOOD COUNT 4.24 10^6/uL (4.00-5.40); WHITE BLOOD COUNT 5.5 10^3/uL (4.0-10.0)
[2024-04-20 11:15] LABS: AMYLASE 80 U/L (30-118)
[2024-04-20 11:16] LABS: ALKALINE PHOSPHATASE 54 U/L (35-104); ALT/SGPT 22 U/L (7.0-40); AST/SGOT 14 U/L (<34); BILIRUBIN,DIRECT 0.2 MG/DL (<0.4); BILIRUBIN,TOTAL 0.7 MG/DL (0.3-1.2); BLOOD UREA NITROGEN 10 MG/DL (9-23); CALCIUM LEVEL 9.3 MG/DL (8.5-10.1); CARBON DIOXIDE LEVEL 25 MMOL/L (20-31); CHLORIDE LEVEL 108 MMOL/L (98-107); CREATININE FOR GFR 0.82 MG/DL (0.55-1.30); GLOMERULAR FILTRATION RATE > 60.0 (>58); GLUCOSE, FASTING 81 MG/DL (60-100); POTASSIUM SERUM 4.3 MMOL/L (3.5-5.1); SODIUM LEVEL 140 MMOL/L (136-145); TOTAL PROTEIN 7.1 G/DL (5.7-8.2)
== END ==
LOC: M LABWUC 09:41
PROVIDERS: ATTEND Nurse Practitioner Adult Health
DX: K59.00 Constipation, unspecified (principal)

== ENCOUNTER → 2024-09-20 | Outpatient (CLI) | payer BC ==
[~2024-09-20] MED LIST changes: -AMBI5TAB PO; +ZOLP-532 PO
== END ==
LOC: M RAD 11:04
PROVIDERS: ATTEND Nurse Practitioner Adult Health
DX: R22.42 Localized swelling, mass and lump, left lower limb (principal)

== ENCOUNTER → 2024-11-16 | Outpatient (REF) | payer BC | LOC: M SFHCDERM 17:36 | PROVIDERS: ATTEND Nurse Practitioner Family | DX: D49.2 Neoplasm of unspecified behavior of bone, soft tissue, and skin (principal) ==

== ENCOUNTER → 2024-12-01 | Outpatient (CLI) | payer BC | LOC: M WUC 10:21 | PROVIDERS: ATTEND Nurse Practitioner Adult Health | DX: M54.12 Radiculopathy, cervical region (principal); M54.6 Pain in thoracic spine; M54.50 Low back pain, unspecified; M54.31 Sciatica, right side; M54.32 Sciatica, left side ==

== ENCOUNTER → 2025-01-23 | Outpatient (REF) | payer BC | LOC: M SFHCDERM 17:30 | PROVIDERS: ATTEND Nurse Practitioner Family | DX: D36.10 Benign neoplasm of peripheral nerves and autonomic nervous system, unspecified (principal) ==